=== PATIENT | female | born 1975 | race Caucasian/White ===

== ENCOUNTER 2016-11-22 17:32 | Emergency (ER) | payer OTHER ==
[2016-11-22] MEDS ORDERED: SODIUM CHLORIDE 0.9% 1,000 ML IV STA (17:59)
--- NOTE | 2016-11-22 18:01 | ED ---
General Adult HPI - General Chief complaint: Seizure Stated complaint: seizure Time Seen by Provider: 11/22/16 17:41 Source: patient, family, EMS, RN notes reviewed Mode of arrival: EMS Limitations: altered mental status - History of Present Illness Initial comments: 41-year-old female presents to the emergency Department chief complaint of hypoglycemia happened at home. Patient has a history of when her sugar drop she goes into almost like a seizure-type state. She states that she just was talking on the phone the next thing she remembers was EMS there. They state that her sugar was low and now it is 76. She states she still feels a little out of it but otherwise is normal. She states she's been taking her normal medications she did eat today. Patient states she has a history of this glucose dropping however. Family was concerned due to the episodes that They should be evaluated. Patient denies any recent fever, chills, shortness of breath, chest pain, back pain, abdominal pain, nausea vomiting, numbness or tingling, dysuria or hematuria, constipation or diarrhea, headaches or visual changes, or any other current symptoms. - Related Data Home Medications Medication Instructions Recorded Confirmed Insulin Glargine [Lantus] 200 units SQ HS 02/04/16 11/22/16 Aspirin EC [Ecotrin Low Dose] 81 mg PO DAILY 11/22/16 11/22/16 Citalopram Hydrobromide [CeleXA] 20 mg PO DAILY 11/22/16 11/22/16 Ergocalciferol (Vitamin D2) 50,000 unit PO Q30D 11/22/16 11/22/16 [Vitamin D2] Ferrous Sulfate [Feosol] 325 mg PO DAILY 11/22/16 11/22/16 Insulin Aspart [NovoLOG] 18 unit SQ AC-LUNCH 11/22/16 11/22/16 Insulin Aspart [NovoLOG] 20 unit SQ AC-BRKFST 11/22/16 11/22/16 Insulin Aspart [NovoLOG] 21 unit SQ AC-SUPPER 11/22/16 11/22/16 Levothyroxine Sodium [Synthroid] 100 mcg PO DAILY 11/22/16 11/22/16 Sertraline [Zoloft] 100 mg PO DAILY 11/22/16 11/22/16 Allergies Allergy/AdvReac Type Severity Reaction Status Date / Time No Known Allergies Allergy Verified 11/22/16 18:50 Review of Systems ROS Statement: Those systems with pertinent positive or pertinent negative responses have been documented in the HPI. ROS Other: All systems not noted in ROS Statement are negative. Past Medical History Past Medical History: Diabetes Mellitus, Thyroid Disorder History of Any Multi-Drug Resistant Organisms: None Reported Past Surgical History: Section, Tonsillectomy Past Psychological History: No Psychological Hx Reported Smoking Status: Never smoker Past Alcohol Use History: None Reported Past Drug Use History: None Reported General Exam Limitations: altered mental status General appearance: alert, in no apparent distress Eye exam: Present: normal appearance, PERRL, EOMI. Absent: scleral icterus, conjunctival injection, periorbital swelling ENT exam: Present: normal exam, mucous membranes moist Neck exam: Present: normal inspection. Absent: tenderness, meningismus, lymphadenopathy Respiratory exam: Present: normal lung sounds bilaterally. Absent: respiratory distress, wheezes, rales, rhonchi, stridor Cardiovascular Exam: Present: regular rate, normal rhythm, normal heart sounds. Absent: systolic murmur, diastolic murmur, rubs, gallop, clicks Back exam: Present: normal inspection Neurological exam: Present: alert, oriented X3, CN II-XII intact Psychiatric exam: Present: normal affect, normal mood Skin exam: Present: warm, dry, intact, normal color. Absent: rash Course Vital Signs 11/22/16 11/22/16 17:39 18:31 Temperature 97.6 F Pulse Rate 116 H 106 H Respiratory 16 16 Rate Blood Pressure 145/68 129/63 O2 Sat by Pulse 97 98 Oximetry Medical Decision Making - Medical Decision Making 41-year-old female presents emergency Department with a chief complaint of hypoglycemic episode. This time patient's glucoses have remained stable here. This time the patient will be discharged home. We discussed follow-up return parameters all patient's questions. She stated that she understood and she is in agreement with plan. All questions have been answered. She will be discharged. - Lab Data Result diagrams: 11/22/16 17:55 11/22/16 17:55 Lab Results 11/22/16 11/22/16 11/22/16 Range/Units 17:55 17:55 18:37 WBC 7.8 (3.8-10.6) k/uL RBC 4.13 (3.80-5.40) m/uL Hgb 10.5 L (11.4-16.0) gm/dL Hct 34.2 (34.0-46.0) % MCV 82.9 (80.0-100.0) fL MCH 25.3 (25.0-35.0) pg MCHC 30.6 L (31.0-37.0) g/dL RDW 17.4 H (11.5-15.5) % Plt Count 424 (150-450) k/uL Neutrophils % 59 % Lymphocytes % 23 % Monocytes % 6 % Eosinophils % 10 % Basophils % 1 % Neutrophils # 4.6 (1.3-7.7) k/uL Lymphocytes # 1.8 (1.0-4.8) k/uL Monocytes # 0.4 (0-1.0) k/uL Eosinophils # 0.8 H (0-0.7) k/uL Basophils # 0.0 (0-0.2) k/uL Hypochromasia Slight Anisocytosis Slight Sodium 140 (137-145) mmol/L Potassium 4.2 (3.5-5.1) mmol/L Chloride 108 H (98-107) mmol/L Carbon Dioxide 19 L (22-30) mmol/L Anion Gap 13 mmol/L BUN 11 (7-17) mg/dL Creatinine 0.80 (0.52-1.04) mg/dL Est GFR (MDRD) Af Amer >60 (>60 ml/min/1.73 sqM) Est GFR (MDRD) Non-Af >60 (>60 ml/min/1.73 sqM) Glucose 48 L* (74-99) mg/dL POC Glucose (mg/dL) 79 (75-99) mg/dL POC Glu Oncology Rn ID Gricel, Heavenly Calcium 9.5 (8.4-10.2) mg/dL Total Bilirubin <0.1 L (0.2-1.3) mg/dL AST 18 (14-36) U/L ALT 26 (9-52) U/L Alkaline Phosphatase 118 (38-126) U/L Total Protein 8.0 (6.3-8.2) g/dL Albumin 3.6 (3.5-5.0) g/dL Urine Color Urine Appearance (Clear) Urine pH (5.0-8.0) Ur Specific [place] (1.001-1.035) Urine Protein (Negative) Urine Glucose (UA) (Negative) Urine Ketones (Negative) Urine Blood (Negative) Urine Nitrite (Negative) Urine Bilirubin (Negative) Urine Urobilinogen (<2.0) mg/dL Ur Leukocyte Esterase (Negative) Urine RBC (0-5) /hpf Urine WBC (0-5) /hpf Ur Squamous Epith Cells (0-4) /hpf Hyaline Casts (0-2) /lpf Urine Mucus (None) /hpf 11/22/16 11/22/16 Range/Units 18:38 19:31 WBC (3.8-10.6) k/uL RBC (3.80-5.40) m/uL Hgb (11.4-16.0) gm/dL Hct (34.0-46.0) % MCV (80.0-100.0) fL MCH (25.0-35.0) pg MCHC (31.0-37.0) g/dL RDW (11.5-15.5) % Plt Count (150-450) k/uL Neutrophils % % Lymphocytes % % Monocytes % % Eosinophils % % Basophils % % Neutrophils # (1.3-7.7) k/uL Lymphocytes # (1.0-4.8) k/uL Monocytes # (0-1.0) k/uL Eosinophils # (0-0.7) k/uL Basophils # (0-0.2) k/uL Hypochromasia Anisocytosis Sodium (137-145) mmol/L Potassium (3.5-5.1) mmol/L Chloride (98-107) mmol/L Carbon Dioxide (22-30) mmol/L Anion Gap mmol/L BUN (7-17) mg/dL Creatinine (0.52-1.04) mg/dL Est GFR (MDRD) Af Amer (>60 ml/min/1.73 sqM) Est GFR (MDRD) Non-Af (>60 ml/min/1.73 sqM) Glucose (74-99) mg/dL POC Glucose (mg/dL) 87 (75-99) mg/dL POC Glu Oncology Rn ID Ev Berumen Calcium (8.4-10.2) mg/dL Total Bilirubin (0.2-1.3) mg/dL AST (14-36) U/L ALT (9-52) U/L Alkaline Phosphatase (38-126) U/L Total Protein (6.3-8.2) g/dL Albumin (3.5-5.0) g/dL Urine Color Light Yellow Urine Appearance Clear (Clear) Urine pH 5.5 (5.0-8.0) Ur Specific [place] 1.013 (1.001-1.035) Urine Protein 1+ H (Negative) Urine Glucose (UA) 3+ H (Negative) Urine Ketones Negative (Negative) Urine Blood Moderate H (Negative) Urine Nitrite Negative (Negative) Urine Bilirubin Negative (Negative) Urine Urobilinogen <2.0 (<2.0) mg/dL Ur Leukocyte Esterase Negative (Negative) Urine RBC 48 H (0-5) /hpf Urine WBC 3 (0-5) /hpf Ur Squamous Epith Cells 1 (0-4) /hpf Hyaline Casts 4 H (0-2) /lpf Urine Mucus Rare H (None) /hpf Disposition Clinical Impression: Hypoglycemia Disposition: HOME SELF-CARE Condition: Stable Instructions: Hypoglycemia in a Person with Diabetes (ED) Additional Instructions: Please use medication as discussed. Please follow up with family doctor if symptoms have not improved over the next two days. Please return to the emergency room if your symptoms increase or worsen or for any other concerns. Referrals: John Rogel MD [Primary Care Provider] - 1-2 days Time of Disposition: 20:08
[2016-11-22 18:18] LABS: Anisocytosis Slight; Basophils % (A) 1 %; CHCM 31.5; Eosinophils # (A) 0.8 k/uL (0-0.7); Eosinophils % (A) 10 %; HCT 34.2 % (34.0-46.0); HDW 2.95; HGB 10.5 gm/dL (11.4-16.0); Hypochromasia Slight; Luc # (Auto) 0.18; Luc % (Auto) 2; Lymphocytes # (A) 1.8 k/uL (1.0-4.8); Lymphocytes % (A) 23 %; MCH 25.3 pg (25.0-35.0); MCHC 30.6 g/dL (31.0-37.0); MCV 82.9 fL (80.0-100.0); Mean Platelet Volume 6.8; Monocytes # (A) 0.4 k/uL (0-1.0); Monocytes % (A) 6 %; Neutrophils # (A) 4.6 k/uL (1.3-7.7); Neutrophils % (A) 59 %; RBC 4.13 m/uL (3.80-5.40); RDW 17.4 % (11.5-15.5); WBC 7.8 k/uL (3.8-10.6); WBC (Perox) 7.89
[2016-11-22 18:27] LABS: ALT 26 U/L (9-52); AST 18 U/L (14-36); Alkaline Phosphatase 118 U/L (38-126); Anion Gap 13 mmol/L; Blood Urea Nitrogen 11 mg/dL (7-17); Calcium 9.5 mg/dL (8.4-10.2); Carbon Dioxide 19 mmol/L (22-30); Chloride 108 mmol/L (98-107); Non-African American GFR(MDRD) >60 (>60 ml/min/1.73 sqM); Potassium 4.2 mmol/L (3.5-5.1); Sodium 140 mmol/L (137-145); Total Bilirubin <0.1 mg/dL (0.2-1.3)
[2016-11-22 18:34] LABS: Glucose 48 mg/dL (74-99)
[2016-11-22 18:41] LABS: Glucose,Whole Blood 79 mg/dL (75-99)
[2016-11-22 18:58] LABS: Appearance,Urine Clear (Clear); Bilirubin,Urine Negative (Negative); Glucose,Urine (UA) 3+ (Negative); Ketones,Urine Negative (Negative); Leukocyte Esterase,Urine Negative (Negative); Mucus,Urine Rare /hpf; Nitrite,Urine Negative (Negative); PH, Urine 5.5 (5.0-8.0); Particle Count 1617; Protein,Urine 1+ (Negative); RBC,Urine 48 /hpf (0-5); Specific Gravity,Urine 1.013 (1.001-1.035); Squamous Epithelial Cell,Urine 1 /hpf (0-4); UA Billing (MACRO vs. MICRO) MICRO; Urobilinogen,Urine <2.0 mg/dL (<2.0); WBC,Urine 3 /hpf (0-5)
[2016-11-22 19:35] LABS: Glucose,Whole Blood 87 mg/dL (75-99)
[2016-11-22 20:09] LABS: Glucose,Whole Blood 104 mg/dL (75-99)
[2016-11-22 20:19] VITALS: BP 142/60; PULSE 81; RESP 18; TEMP 98.2
== END 2016-11-22 20:19 | disposition home or self-care (01) ==
LOC: EC 17:32
DX: E11.649 Type 2 diabetes mellitus with hypoglycemia without coma (principal); E07.9 Disorder of thyroid, unspecified; Z79.4 Long term (current) use of insulin; Z79.82 Long term (current) use of aspirin; Z79.899 Other long term (current) drug therapy
CPT/HCPCS: 36415; 80053; 81001; 85025; 96360; 99285

== ENCOUNTER 2024-04-17 22:03 | Inpatient (IN) | payer OTHER ==
[2024-04-17 22:09] LABS: Glucose,Whole Blood 394 mg/dL (70-110)
[2024-04-17] MEDS: SODIUM CHLORIDE 0.9% 1,000 ML IV SCH (22:25)
[2024-04-17 22:28] LABS: Basophils # (A) 0.1 k/uL (0-0.2); Basophils % (A) 0 %; Eosinophils # (A) 0.1 k/uL (0-0.7); Eosinophils % (A) 1 %; HGB 14.1 gm/dL (11.4-16.0); Hypochromasia Marked; Lymphocytes # (A) 0.5 k/uL (1.0-4.8); Lymphocytes % (A) 2 %; MCH 27.9 pg (25.0-35.0); MCHC 28.9 g/dL (31.0-37.0); MCV 96.7 fL (80.0-100.0); Mean Platelet Volume 7.2; Monocytes # (A) 1.2 k/uL (0-1.0); Monocytes % (A) 5 %; Neutrophils # (A) 24.2 k/uL (1.3-7.7); Neutrophils % (A) 93 %; Platelet Count 490 k/uL (150-450); RBC 5.06 m/uL (3.80-5.40); RDW 15.1 % (11.5-15.5); WBC 26.1 k/uL (3.8-10.6)
[2024-04-17 22:55] LABS: ALT 14 U/L (4-34); AST 16 U/L (14-36); African American GFR (CKD) 42 (>60 ml/min/1.73 sqM); Albumin 4.6 g/dL (3.5-5.0); Alkaline Phosphatase 125 U/L (38-126); Blood Urea Nitrogen 24 mg/dL (7-17); Calcium 9.7 mg/dL (8.4-10.2); Chloride 103 mmol/L (98-107); Glucose 422 mg/dL (74-99); Magnesium 2.4 mg/dL (1.6-2.3); Non-African American GFR(CKD) 36 (>60 ml/min/1.73 sqM); Potassium 5.4 mmol/L (3.5-5.1); Sodium 137 mmol/L (137-145); Total Bilirubin 0.5 mg/dL (0.2-1.3); Total Protein 8.6 g/dL (6.3-8.2)
[2024-04-17 23:02] LABS: Carbon Dioxide <5 mmol/L (22-30)
[2024-04-17] MEDS: INSULIN REGULAR 100 UNIT in SODIUM CHLORIDE 0.9% 100 ML IV SCH (23:46)
[2024-04-17 23:57] LABS: Glucose,Whole Blood 341 mg/dL (70-110)
--- NOTE | 2024-04-17 23:59 | ED ---
General Adult HPI - General Chief complaint: Recheck/Abnormal Lab/Rx Stated complaint: high blood pressure, vomiting Time Seen by Provider: 04/17/24 22:10 Source: EMS Mode of arrival: EMS - History of Present Illness Initial comments: 48-year-old female with past medical history of diabetes, insulin-dependent who presents to the emergency department with high blood sugar, nausea and vomiting. Patient states that she out of her long-acting insulin a couple of days ago. She has been taking her short acting and took 3 doses today to try and compensate for it. She reports that her insurance company will not authorize her insulin until this weekend. She began having nausea and vomiting with diffuse bodyaches. EMS was called. They did find that the patient had an elevated glucose. She denies a history of DKA other than when she was originally diagnosed with her diabetes. She states that she has been compliant with all of her other medications. No fevers. Denies chest pain or difficulty breathing. No concern for . no other alleviating, precipitating mo difying factors - Related Data Home Medications Medication Instructions Recorded Confirmed Insulin Glargine (Lantus) [Lantus] 200 units SQ HS 02/04/16 11/22/16 Aspirin EC [Ecotrin Low Dose] 81 mg PO DAILY 11/22/16 11/22/16 Citalopram Hydrobromide [CeleXA] 20 mg PO DAILY 11/22/16 11/22/16 Ergocalciferol (Vitamin D2) 50,000 unit PO Q30D 11/22/16 11/22/16 [Vitamin D2] Ferrous Sulfate [Feosol] 325 mg PO DAILY 11/22/16 11/22/16 INSULIN ASPART (NovoLOG) [NovoLOG] 18 unit SQ AC-LUNCH 11/22/16 11/22/16 INSULIN ASPART (NovoLOG) [NovoLOG] 20 unit SQ AC-BRKFST 11/22/16 11/22/16 INSULIN ASPART (NovoLOG) [NovoLOG] 21 unit SQ AC-SUPPER 11/22/16 11/22/16 Levothyroxine Sodium [Synthroid] 100 mcg PO DAILY 11/22/16 11/22/16 Sertraline [Zoloft] 100 mg PO DAILY 11/22/16 11/22/16 Allergies Allergy/AdvReac Type Severity Reaction Status Date / Time No Known Allergies Allergy Verified 04/17/24 22:18 Review of Systems ROS Statement: Those systems with pertinent positive or pertinent negative responses have been documented in the HPI. ROS Other: All systems not noted in ROS Statement are negative. Past Medical History Past Medical History: Diabetes Mellitus, Thyroid Disorder History of Any Multi-Drug Resistant Organisms: None Reported Past Surgical History: Section, Tonsillectomy Past Psychological History: No Psychological Hx Reported Past Alcohol Use History: None Reported Past Drug Use History: None Reported General Exam General appearance: alert, in distress, other (Strong acetone smell) Head exam: Present: atraumatic, normocephalic, normal inspection Eye exam: Present: normal appearance, PERRL, EOMI. Absent: scleral icterus, conjunctival injection, periorbital swelling ENT exam: Present: normal exam, mucous membranes dry Neck exam: Present: normal inspection. Absent: tenderness, meningismus, lymphadenopathy Respiratory exam: Present: normal lung sounds bilaterally. Absent: respiratory distress, wheezes, rales, rhonchi, stridor Cardiovascular Exam: Present: normal rhythm, tachycardia, normal heart sounds. Absent: systolic murmur, diastolic murmur, rubs, gallop, clicks GI/Abdominal exam: Present: soft, normal bowel sounds. Absent: distended, tenderness, guarding, rebound, rigid Extremities exam: Present: normal inspection, full ROM, normal capillary refill. Absent: tenderness, pedal edema, joint swelling, calf tenderness Back exam: Present: normal inspection Neurological exam: Present: alert, oriented X3, CN II-XII intact Psychiatric exam: Present: normal affect, normal mood Skin exam: Present: warm, dry, intact, normal color. Absent: rash Course Vital Signs 04/17/24 22:07 Temperature 97.6 F Pulse Rate 131 H Respiratory 22 Rate Blood Pressure 123/60 O2 Sat by Pulse 100 Oximetry Medical Decision Making - Medical Decision Making Was pt. sent in by a medical professional or institution (, PA, [employer], urgent care, hospital, or fci...) When possible be specific @ -No Did you speak to anyone other than the patient for history (EMS, parent, family, police, friend...)? What history was obtained from this source @ -Spoke with EMS for history Did you review nursing and triage notes (agree or disagree)? Why? @ -I reviewed and agree with nursing and triage notes Were old charts reviewed (outside hosp., previous admission, EMS record, old EKG, old radiological studies, urgent care reports/EKG's, fci records)? Report findings @ -I reviewed the patient's medication log Differential Diagnosis (chest pain, altered mental status, abdominal pain women, abdominal pain men, vaginal bleeding, weakness, fever, dyspnea, syncope, headache, dizziness, GI bleed, back pain, seizure, CVA, palpatations, mental health, musculoskeletal)? @ -Differential Weakness: Hypoglycemia, shock, sepsis, hyponatremia, anemia, infection, CT, ETOH, adverse medicine reaction, overdose, stroke, this is not meant to be an all-inclusive list. EKG interpreted by me (3pts min.). @ -Not done X-rays interpreted by me (1pt min.). @ -None done CT interpreted by me (1pt min.). @ -None done U/S interpreted by me (1pt. min.). @ -None done What testing was considered but not performed or refused? (CT, X-rays, U/S, labs)? Why? @ -None What meds were considered but not given or refused? Why? @ -None Did you discuss the management of the patient with other professionals (professionals i.e. , PA, [employer], lab, RT, psych nurse, social security specialist, quality analyst, teacher, commercial loan collection officer, geriatric case manager)? Give summary @ -Dr. Rogel who will admit the patient Was smoking cessation discussed for >3mins.? @ -No Was critical care preformed (if so, how long)? @ -Yes, 40 minutes for management of DKA with insulin drip Were there social determinants of health that impacted care today? How? (Homelessness, low income, unemployed, alcoholism, drug addiction, transportation, low edu. Level, literacy, decrease access to med. care, alf, rehab)? @ -Patient does not have access to her insulin until this upcoming weekend Was there de-escalation of care discussed even if they declined (Discuss DNR or withdrawal of care, Hospice)? DNR status @ -No What co-morbidities impacted this encounter? (DM, HTN, Smoking, COPD, CAD, Cancer, CVA, ARF, Chemo, Hep., AIDS, mental health diagnosis, sleep apnea, morbid obesity)? @ -Diabetes mellitus Was patient admitted / discharged? Hospital course, mention meds given and route, prescriptions, significant lab abnormalities, going to OR and other pertinent info. @ -Upon arrival patient seen and evaluated in bed 16. Thorough history and physical exam was performed. Patient does smell strongly of acetone. IV was established. She was given 2 L bolus of normal saline. Laboratory studies are conducted. Patient does have low CO2, unmeasurable anion gap and is acetone positive. Patient does meet criteria for DKA. Patient will be admitted. Spoke with Dr. Rogel for the admission Undiagnosed new problem with uncertain prognosis? @ -No Drug Therapy requiring intensive monitoring for toxicity (Heparin, Nitro, Insulin, Cardizem)? @ -Insulin drip Were any procedures done? @ -No Diagnosis/symptom? @ -Nausea vomiting, acute DKA Acute, or Chronic, or Acute on Chronic? @ -Acute Uncomplicated (without systemic symptoms) or Complicated (systemic symptoms)? @ -Complicated Side effects of treatment? @ -No Exacerbation, Progression, or Severe Exacerbation? @ -No Poses a threat to life or bodily function? How? (Chest pain, USA, CT, pneumonia, PE, COPD, DKA, ARF, appy, cholecystitis, CVA, Diverticulitis, Homicidal, Suicidal, threat to staff... and all critical care pts) @ -Yes as patient is in DKA - Lab Data Result diagrams: 04/17/24 22:20 04/17/24 22:20 Lab Results 04/17/24 04/17/24 04/17/24 Range/Units 22:06 22:20 22:20 WBC 26.1 H (3.8-10.6) k/uL RBC 5.06 (3.80-5.40) m/uL Hgb 14.1 (11.4-16.0) gm/dL Hct 49.0 H (34.0-46.0) % MCV 96.7 (80.0-100.0) fL MCH 27.9 (25.0-35.0) pg MCHC 28.9 L (31.0-37.0) g/dL RDW 15.1 (11.5-15.5) % Plt Count 490 H (150-450) k/uL MPV 7.2 Neutrophils % 93 % Lymphocytes % 2 % Monocytes % 5 % Eosinophils % 1 % Basophils % 0 % Neutrophils # 24.2 H (1.3-7.7) k/uL Lymphocytes # 0.5 L (1.0-4.8) k/uL Monocytes # 1.2 H (0-1.0) k/uL Eosinophils # 0.1 (0-0.7) k/uL Basophils # 0.1 (0-0.2) k/uL Hypochromasia Marked Sodium 137 (137-145) mmol/L Potassium 5.4 H (3.5-5.1) mmol/L Chloride 103 (98-107) mmol/L Carbon Dioxide <5 L* (22-30) mmol/L Anion Gap mmol/L BUN 24 H (7-17) mg/dL Creatinine 1.68 H (0.52-1.04) mg/dL Est GFR (CKD-EPI)AfAm 42 (>60 ml/min/1.73 sqM) Est GFR (CKD-EPI)NonAf 36 (>60 ml/min/1.73 sqM) Glucose 422 H (74-99) mg/dL POC Glucose (mg/dL) 394 H (70-110) mg/dL POC Glu Pharmacist In Charge Owner ID Caya Mckenzie Plasma Lactic Acid Lizandro (0.7-2.0) mmol/L Calcium 9.7 (8.4-10.2) mg/dL Magnesium 2.4 H (1.6-2.3) mg/dL Total Bilirubin 0.5 (0.2-1.3) mg/dL AST 16 (14-36) U/L ALT 14 (4-34) U/L Alkaline Phosphatase 125 (38-126) U/L Total Protein 8.6 H (6.3-8.2) g/dL Albumin 4.6 (3.5-5.0) g/dL TSH 1.740 (0.465-4.680) mIU/L Acetone, Qual Positive (Negative) 04/17/24 04/17/24 Range/Units 22:20 23:48 WBC (3.8-10.6) k/uL RBC (3.80-5.40) m/uL Hgb (11.4-16.0) gm/dL Hct (34.0-46.0) % MCV (80.0-100.0) fL MCH (25.0-35.0) pg MCHC (31.0-37.0) g/dL RDW (11.5-15.5) % Plt Count (150-450) k/uL MPV Neutrophils % % Lymphocytes % % Monocytes % % Eosinophils % % Basophils % % Neutrophils # (1.3-7.7) k/uL Lymphocytes # (1.0-4.8) k/uL Monocytes # (0-1.0) k/uL Eosinophils # (0-0.7) k/uL Basophils # (0-0.2) k/uL Hypochromasia Sodium (137-145) mmol/L Potassium (3.5-5.1) mmol/L Chloride (98-107) mmol/L Carbon Dioxide (22-30) mmol/L Anion Gap mmol/L BUN (7-17) mg/dL Creatinine (0.52-1.04) mg/dL Est GFR (CKD-EPI)AfAm (>60 ml/min/1.73 sqM) Est GFR (CKD-EPI)NonAf (>60 ml/min/1.73 sqM) Glucose (74-99) mg/dL POC Glucose (mg/dL) 341 H (70-110) mg/dL POC Glu Pharmacist In Charge Owner ID Caya Mckenzie Plasma Lactic Acid Lizandro 3.7 H* (0.7-2.0) mmol/L Calcium (8.4-10.2) mg/dL Magnesium (1.6-2.3) mg/dL Total Bilirubin (0.2-1.3) mg/dL AST (14-36) U/L ALT (4-34) U/L Alkaline Phosphatase (38-126) U/L Total Protein (6.3-8.2) g/dL Albumin (3.5-5.0) g/dL TSH (0.465-4.680) mIU/L Acetone, Qual (Negative) Disposition Clinical Impression: DKA (diabetic ketoacidosis), Nausea and vomiting, Tachycardia Disposition: ADMITTED IP TO THIS [facility] Condition: Serious Is patient prescribed a controlled substance at d/c from ED?: No Referrals: John Rogel MD [Primary Care Provider] - 1-2 days Time of Disposition: 00:00 Decision to Admit Reason: Admit from EC Decision Date: 04/18/24 Decision Time: 00:00
[2024-04-18 00:14] LABS: Amorphous Sediment,Urine Rare /hpf; Appearance,Urine Clear (Clear); Bacteria,Urine Few /hpf; Bilirubin,Urine Negative (Negative); Blood,Urine Moderate (Negative); Budding Yeast,Urine Occasional /hpf; Color,Urine Colorless; Glucose,Urine (UA) 4+ (Negative); Hyaline Casts,Urine 33 /lpf (0-2); Leukocyte Esterase,Urine Small (Negative); Mucus,Urine Occasional /hpf; Nitrite,Urine Negative (Negative); Protein,Urine Trace (Negative); RBC,Urine 2 /hpf (0-5); Specific Gravity,Urine 1.019 (1.001-1.035); Squamous Epithelial Cell,Urine 2 /hpf (0-4); Urobilinogen,Urine <2.0 mg/dL (<2.0); WBC,Urine 29 /hpf (0-5)
[2024-04-18 00:21] LABS: Ketones,Urine 4+ (Negative)
[2024-04-18 00:50] LABS: Glucose,Whole Blood 242 mg/dL (70-110)
[2024-04-18] MEDS: D5-0.45% NACL WITH KCL 20MEQ/L 1,000 ML IV SCH (01:11)
[2024-04-18 01:23] LABS: African American GFR (CKD) 56 (>60 ml/min/1.73 sqM); Blood Urea Nitrogen 23 mg/dL (7-17); Chloride 108 mmol/L (98-107); Glucose 306 mg/dL (74-99); Non-African American GFR(CKD) 49 (>60 ml/min/1.73 sqM); Potassium 5.3 mmol/L (3.5-5.1); Sodium 137 mmol/L (137-145)
[2024-04-18 01:25] LABS: Carbon Dioxide <5 mmol/L (22-30)
[2024-04-18 01:50] LABS: Glucose,Whole Blood 200 mg/dL (70-110)
[2024-04-18 02:47] LABS: Glucose,Whole Blood 168 mg/dL (70-110)
[2024-04-18 03:54] LABS: Glucose,Whole Blood 143 mg/dL (70-110)
[2024-04-18 04:14] LABS: African American GFR (CKD) 72 (>60 ml/min/1.73 sqM); Anion Gap 17 mmol/L; Blood Urea Nitrogen 21 mg/dL (7-17); Carbon Dioxide 11 mmol/L (22-30); Chloride 108 mmol/L (98-107); Glucose 159 mg/dL (74-99); Non-African American GFR(CKD) 63 (>60 ml/min/1.73 sqM); Potassium 4.4 mmol/L (3.5-5.1); Sodium 136 mmol/L (137-145)
[2024-04-18 04:53] LABS: Glucose,Whole Blood 128 mg/dL (70-110)
[2024-04-18 06:00] LABS: Glucose,Whole Blood 140 mg/dL (70-110)
[2024-04-18 07:09] LABS: Glucose,Whole Blood 151 mg/dL (70-110)
[2024-04-18 08:15] LABS: Glucose,Whole Blood 150 mg/dL (70-110)
[2024-04-18 09:41] LABS: Glucose,Whole Blood 179 mg/dL (70-110)
[2024-04-18 10:36] LABS: Glucose,Whole Blood 229 mg/dL (70-110)
[2024-04-18 11:14] LABS: African American GFR (CKD) 87 (>60 ml/min/1.73 sqM); Anion Gap 17 mmol/L; Blood Urea Nitrogen 16 mg/dL (7-17); Carbon Dioxide 10 mmol/L (22-30); Chloride 106 mmol/L (98-107); Glucose 247 mg/dL (74-99); Non-African American GFR(CKD) 75 (>60 ml/min/1.73 sqM); Phosphorus 2.5 mg/dL (2.5-4.5); Potassium 4.9 mmol/L (3.5-5.1); Sodium 133 mmol/L (137-145)
[2024-04-18 11:35] LABS: Glucose,Whole Blood 261 mg/dL (70-110)
[2024-04-18 12:36] LABS: Glucose,Whole Blood 255 mg/dL (70-110)
[2024-04-18] MEDS: INSULIN GLARGINE (LANTUS) 100 UNIT/ML SYR SQ SCH (12:41)
[2024-04-18] MEDS: INSULIN LISPRO (HumaLOG) 100 UNIT/ML 10 mL VL SQ SCH (12:42)
[2024-04-18 13:34] LABS: Glucose,Whole Blood 232 mg/dL (70-110)
[2024-04-18 15:10] LABS: Glucose,Whole Blood 216 mg/dL (70-110)
[2024-04-18 15:39] LABS: Potassium 4.9 mmol/L (3.5-5.1)
[2024-04-18 15:40] LABS: African American GFR (CKD) >90 (>60 ml/min/1.73 sqM); Anion Gap 13 mmol/L; Blood Urea Nitrogen 15 mg/dL (7-17); Carbon Dioxide 12 mmol/L (22-30); Chloride 107 mmol/L (98-107); Glucose 245 mg/dL (74-99); Non-African American GFR(CKD) 80 (>60 ml/min/1.73 sqM); Sodium 132 mmol/L (137-145)
[2024-04-18 15:51] VITALS: TEMP 98.5
[2024-04-18 16:18] LABS: Glucose,Whole Blood 239 mg/dL (70-110)
[2024-04-18 16:30] LABS: African American GFR (CKD) >90 (>60 ml/min/1.73 sqM); Anion Gap 13 mmol/L; Blood Urea Nitrogen 13 mg/dL (7-17); Calcium 9.6 mg/dL (8.4-10.2); Carbon Dioxide 12 mmol/L (22-30); Chloride 108 mmol/L (98-107); Glucose 236 mg/dL (74-99); Non-African American GFR(CKD) 83 (>60 ml/min/1.73 sqM); Potassium 4.3 mmol/L (3.5-5.1); Sodium 133 mmol/L (137-145)
[2024-04-18 17:13] LABS: Glucose,Whole Blood 225 mg/dL (70-110)
[2024-04-18 18:02] LABS: Glucose,Whole Blood 216 mg/dL (70-110)
[2024-04-18 19:09] LABS: Glucose,Whole Blood 215 mg/dL (70-110)
[2024-04-18 20:05] LABS: Glucose,Whole Blood 177 mg/dL (70-110)
[2024-04-18 21:00] LABS: African American GFR (CKD) >90 (>60 ml/min/1.73 sqM); Anion Gap 13 mmol/L; Blood Urea Nitrogen 10 mg/dL (7-17); Calcium 9.7 mg/dL (8.4-10.2); Carbon Dioxide 15 mmol/L (22-30); Chloride 107 mmol/L (98-107); Glucose 178 mg/dL (74-99); Non-African American GFR(CKD) >90 (>60 ml/min/1.73 sqM); Potassium 4.4 mmol/L (3.5-5.1); Sodium 135 mmol/L (137-145)
[2024-04-18 21:03] LABS: Glucose,Whole Blood 160 mg/dL (70-110)
[2024-04-18 22:01] LABS: Glucose,Whole Blood 167 mg/dL (70-110)
[2024-04-18 22:59] LABS: Glucose,Whole Blood 180 mg/dL (70-110)
[2024-04-19 00:09] LABS: Glucose,Whole Blood 169 mg/dL (70-110)
[2024-04-19 01:18] LABS: Glucose,Whole Blood 170 mg/dL (70-110)
[2024-04-19 01:23] LABS: African American GFR (CKD) >90 (>60 ml/min/1.73 sqM); Anion Gap 10 mmol/L; Blood Urea Nitrogen 8 mg/dL (7-17); Calcium 9.7 mg/dL (8.4-10.2); Carbon Dioxide 18 mmol/L (22-30); Chloride 106 mmol/L (98-107); Glucose 167 mg/dL (74-99); Non-African American GFR(CKD) >90 (>60 ml/min/1.73 sqM); Potassium 4.2 mmol/L (3.5-5.1); Sodium 134 mmol/L (137-145)
[2024-04-19 02:02] LABS: Glucose,Whole Blood 169 mg/dL (70-110)
[2024-04-19] MEDS ORDERED: DEXTROSE 50% SYRINGE 50 ML IVP PRN ×2 (02:10)
[2024-04-19] MEDS: INSULIN GLARGINE (LANTUS) 100 UNIT/ML SYR SQ STA (02:26)
[2024-04-19 04:14] LABS: Glucose,Whole Blood 132 mg/dL (70-110)
[2024-04-19] MEDS: INSULIN LISPRO (HumaLOG) 100 UNIT/ML 10 mL VL SQ SCH ×2 (04:15→08:06)
[2024-04-19 06:27] LABS: Glucose,Whole Blood 139 mg/dL (70-110)
[2024-04-19 06:51] VITALS: PULSE 94
[2024-04-19 07:59] LABS: Glucose,Whole Blood 118 mg/dL (70-110)
[2024-04-19 08:11] LABS: HCT 35.6 % (34.0-46.0); Hypochromasia Slight; MCH 27.5 pg (25.0-35.0); MCHC 30.8 g/dL (31.0-37.0); Mean Platelet Volume 6.9; Platelet Count 276 k/uL (150-450); RBC 3.99 m/uL (3.80-5.40); RDW 15.6 % (11.5-15.5); WBC 9.9 k/uL (3.8-10.6)
[2024-04-19 08:26] LABS: ALT 9 U/L (4-34); AST 17 U/L (14-36); African American GFR (CKD) >90 (>60 ml/min/1.73 sqM); Albumin 3.2 g/dL (3.5-5.0); Alkaline Phosphatase 89 U/L (38-126); Anion Gap 12 mmol/L; Blood Urea Nitrogen 5 mg/dL (7-17); Calcium 9.4 mg/dL (8.4-10.2); Carbon Dioxide 17 mmol/L (22-30); Chloride 106 mmol/L (98-107); Glucose 128 mg/dL (74-99); Magnesium 1.9 mg/dL (1.6-2.3); Non-African American GFR(CKD) >90 (>60 ml/min/1.73 sqM); Phosphorus 1.4 mg/dL (2.5-4.5); Sodium 135 mmol/L (137-145); Total Bilirubin 0.5 mg/dL (0.2-1.3); Total Protein 6.5 g/dL (6.3-8.2)
[2024-04-19 08:36] LABS: MCV 89.2 fL (80.0-100.0)
[2024-04-19 08:59] VITALS: BP 144/73; RESP 18
[2024-04-19] MEDS: hydroCHLOROthiazide 25 MG TAB PO SCH (09:04)
[2024-04-19] MEDS: LEVOTHYROXINE 100 MCG TAB PO SCH (09:04)
[2024-04-19] MEDS: ASPIRIN 81 MG PO SCH (09:04)
[2024-04-19] MEDS: DAPAGLIFLOZIN PROPANEDIOL 10 MG TABLET PO SCH (09:04)
[2024-04-19] MEDS: ATORVASTATIN 40 MG TAB PO SCH (09:04)
[2024-04-19] MEDS: lisinopriL 20 MG TAB PO SCH (09:04)
[2024-04-19] MEDS: MONTELUKAST 10 MG TAB PO SCH (09:04)
[2024-04-19] MEDS: amLODIPine 10 MG TAB PO SCH (09:05)
--- NOTE | 2024-04-20 01:53 | HP ---
HISTORY AND PHYSICAL CHIEF COMPLAINT: Uncontrolled diabetes and hyperglycemia with dehydration. HISTORY OF PRESENT ILLNESS: Another admission for this 48-year-old diabetic. She went to get her insulin and was told by the pharmacy that she could not get it because it was 3 days early. Blood sugars then skyrocketed. She came to the emergency room in DKA. She was not vomiting. REVIEW OF SYSTEMS: Unremarkable. Past medical history, family history, personal and social histories reveal that she had been on Lantus anywhere from 75 to 100 units twice a day along with a short-acting Ozempic as well as Jardiance. PHYSICAL EXAMINATION: VITAL SIGNS: Normal except for tachycardia of 108, respirations were 39. GENERAL: She is overweight, but no acute distress. HEAD, EARS, EYES, NOSE, MOUTH, THROAT: Normal. CHEST: Clear. CARDIAC: Demonstrated sinus tachycardia. ABDOMEN: Soft and slightly protuberant. EXTREMITIES: Normal. NEUROLOGIC: She is intact. ASSESSMENT: She is admitted to the hospital with diagnosis of diabetic ketoacidosis. PLAN: 1. Bedrest. 2. IV fluids. 3. DKA protocol. 4. Reinstitute her basal bolus insulin program. MMODL / IJN: [id number] /
--- NOTE | 2024-04-20 08:51 | DS ---
DISCHARGE SUMMARY CHIEF COMPLAINT: Diabetic ketoacidosis. HISTORY OF PRESENT ILLNESS AND PHYSICAL EXAMINATION: Details of this lady's history and physical can be found in the initial workup. LABORATORY STUDIES: While she is in the hospital, she had laboratory studies, details of which could be found in the laboratory section of her chart. COURSE IN THE HOSPITAL: After admission, she was placed on bedrest, started on intravenous fluids. She was kept in the emergency room and not admitted to a medical floor. She was started on DKA protocol. Her sugar was coming down and was as low as around 169, and it was felt she could be discharged. When she came in, her usual insulin management was ordered and placed in her MAR which include a basal bolus program. Later in the afternoon, I got a call that her gap still was not closed, and her blood sugar was running over 200. I indicated to the nurse that the patient could go home with the assumption that she had the basal bolus insulins on order and that they had been given. The nurse seemed to be upset when I had insisted that the patient could be discharged. The patient was not discharged, and I was not notified. The following morning, Sunday, the nurse called asking if the patient could go home. Sugars are down. It was felt she could be discharged. I asked that nurse if she had been there the previous day, she said no. She agreed that she did not understand why the insulin or program that had been ordered was not given. This wound up incurring an extra hospital stay which was even further inappropriate by the fact that the patient was never taken out of the discomfort of the emergency room. She should be seen in several days in the office. FINAL DIAGNOSIS: Diabetic ketoacidosis. OPERATIONS: None. CONSULTATIONS: None. CONDITION: She is improved. MMODL / IJN: [id number] /
== END 2024-04-19 10:22 | disposition home or self-care (01) | DRG 420 ==
LOC: EC 22:03 → 3SCARD 04-18
PROVIDERS: ADMIT Family Medicine; ATTEND Family Medicine
DX: E11.10 Type 2 diabetes mellitus with ketoacidosis without coma (principal); E86.0 Dehydration; R00.0 Tachycardia, unspecified; Z79.4 Long term (current) use of insulin; Z79.82 Long term (current) use of aspirin; Z79.890 Hormone replacement therapy
CPT/HCPCS: 36415; 80048; 80051; 80053; 81001; 82009; 82565; 82947; 83605; 83735; 84100; 84443; 84520; 85025; 85027; 93005; 96361; 96365; 96366; 99291